=== PATIENT | female | born 1970 | race Asian ===

== ENCOUNTER 2017-02-10 12:58 | Emergency (ER) | payer BC ==
[2017-02-10 13:03] VITALS: RESP 16; TEMP 98.2
[2017-02-10] MEDS ORDERED: MECLIZINE HCL 25 MG TAB PO ONE (13:16)
[2017-02-10] MEDS ORDERED: LORazepam 2 MG/ML INJ IVP ONE (13:16)
[2017-02-10] MEDS ORDERED: NS 1,000 ML IV ONE (13:16)
--- NOTE | 2017-02-10 14:47 | EDPHY ---
H & P Stated Complaint: dizzy today - Personal History LMP (Females 10-55): 8-14 Days Ago Current Tetanus/Diphtheria Vaccine: Unsure Current Tetanus Diphtheria and Acellular Pertussis (TDAP): Unsure - Medical/Surgical History Hx Asthma: Yes Hx Chronic Respiratory Disease: No Hx Diabetes: No Hx Cardiac Disease: No Hx Renal Disease: No Hx Cirrhosis: No Hx Alcoholism: No Hx HIV/AIDS: No Hx Splenectomy or Spleen Trauma: No Other PMH: asthma, hypothyroid - Social History Smoking Status: Never smoked HPI/ROS: Chief complaint: Dizziness History of present illness: This is a 46-year-old female who presents to the emergency department for evaluation of dizziness. She describes the dizziness as the room spinning around her. Patient reports the onset of symptoms yesterday. Symptoms have been persistent. She denies specific precipitating factors. She denies alleviating factors. She does states symptoms are worse with movement. Patient denies other associated signs or symptoms including no fevers, cold symptoms trauma, headache, no paresthesias, no weakness or paralysis, no bowel or bladder dysfunction. She does state 3 or 4 years ago she had a similar episode. She did see Neurology but states that it not find anything during their evaluation. Review of systems: A 10 point review of systems was obtained and other than described above was negative (Chandu Mohr) - Physical Exam Exam: General Appearance: Alert, nontoxic. Eyes: Pupils equal and round no injection. ENT: Tympanic membranes, external auditory canals, external ears and surrounding soft tissue including over the mastoids are unremarkable. Nasopharynx is not injected. There is no rhinorrhea. Oropharynx is not injected. There is no edema. There is no exudate. There is no asymmetry. The uvula is midline. No elevation of the tongue. There is no hoarseness, no drooling, no trismus, no stridor. Respiratory: Chest is non tender, lungs are clear to auscultation. Cardiac: regular rate and rhythm Musculoskeletal: Neck is supple and non tender. Extremities have full range of motion and are non tender. Skin: No rashes or lesions. Neurological: Alert and oriented x4. Cranial nerves 2-12 grossly intact. Strength and sensation intact and symmetrical. Cerebellar testing intact using finger to nose. No meningismus. She is able to ambulate on her own. (Chandu Mohr) Constitutional: Initial Vital Signs Temperature (C) 36.8 C 02/10/17 13:00 Heart Rate 77 02/10/17 13:00 Respiratory Rate 16 02/10/17 13:00 Blood Pressure 116/77 02/10/17 13:00 O2 Sat (%) 92 02/10/17 13:00 O2 Delivery Mode Room Air Allergies/Adverse Reactions: No Known Allergies Allergy (Unverified 02/10/17 13:03) Home Medications: Medication Instructions Recorded AZITHROMYCIN [Z-PACK] 250 mg PO DAILY #0 packet 08/25/11 Fluticasone Nasal [Flonase Nasal 2 sprays NASAL DAILY #1 mdi 08/25/11 [place]] Fluticasone Propionate [Flovent 1 puffs IH DAILY 08/25/11 [facility]] Salmeterol Diskus [Serevent Diskus] 1 puffs IH DAILY 08/25/11 oxyCODONE/APAP 5/325 [Percocet 1 tab PO Q6 #10 tab 08/25/11 5/325] Meclizine HCl [Meclizine HCl 25 mg 25 mg PO QID #10 tab 02/10/17 (RX,OTC)] Medical Decision Making ED Course/Re-evaluation: Patient discussed with my secondary supervising physician Dr. Toby Garcia. Patient presents to the emergency department for dizziness. Patient is describing vertigo. She is nontoxic. Vital signs are stable. She has a nonfocal neurologic exam. She has had a previous history of this and has been worked up by neurology without specific findings according to her. This does sound like a peripheral vertigo. She is symptomatically treated with Ativan and meclizine and reports improvement in symptoms. She is discharged home on meclizine. She is referred to ENT for continued evaluation and care. Strict return precautions are given. Patient voiced understanding and agreement with plan. (Chandu Mohr) Differential Diagnosis: Included but not limited to peripheral causes of vertigo such as BPPV and labyrinthitis as well central causes of vertigo such as intracranial tumor or bleed, lightheadedness of multiple etiologies (Chandu Mohr) Other Provider: PHYSICIAN DOCUMENTATION: The patient was evaluated and managed by the Physician Clothing Examiner. My co- signature indicates that I have reviewed this chart and I agree with the findings and plan of care as documented. I am the secondary supervising physician. (Anthony Garcia) - Data Points Medications Given: Discontinued Medications Sodium Chloride (Ns) 1,000 mls @ 0 mls/hr IV ONCE ONE; Wide Open PRN Reason: Protocol Stop: 02/10/17 13:17 Last Admin: 02/10/17 13:39 Dose: 1,000 mls Lorazepam (Ativan Injection) 0.5 mg IVP EDNOW ONE Stop: 02/10/17 13:17 Last Admin: 02/10/17 13:38 Dose: 0.5 mg Meclizine HCl (Meclizine Hcl) 25 mg PO EDNOW ONE Stop: 02/10/17 13:17 Last Admin: 02/10/17 13:38 Dose: 25 mg Departure - Departure Disposition: Home, Routine, Self-Care Clinical Impression: Vertigo Condition: Good Instructions: Vertigo (ED) Additional Instructions: Follow-up with your primary care doctor for recheck If symptoms worsen or new symptoms develop return to the emergency room for recheck Referrals: Elizabet Rangel MD [Primary Care Provider] - As per Instructions Cisco Sharif MD [Medical Doctor] - As per Instructions Prescriptions: Meclizine HCl [Meclizine HCl 25 mg (RX,OTC)] 25 mg PO QID #10 tab
[2017-02-10 15:11] VITALS: BP 106/68; PULSE 71; O2SAT 96
== END 2017-02-10 15:18 | disposition home or self-care (01) ==
DX: R42 Dizziness and giddiness (principal); E86.9 Volume depletion, unspecified; J45.909 Unspecified asthma, uncomplicated
CPT/HCPCS: 96374; J2060

== ENCOUNTER → 2017-07-17 | Outpatient (CLI) | payer BC | LOC: FIMAGING 07:47 | PROVIDERS: ATTEND Family Medicine | DX: Z12.31 Encounter for screening mammogram for malignant neoplasm of breast (principal) | CPT/HCPCS: G0202 ==

== ENCOUNTER → 2018-10-05 | Outpatient (CLI) | payer BC | LOC: FIMAGING 07:57 | PROVIDERS: ATTEND Family Medicine | DX: Z12.31 Encounter for screening mammogram for malignant neoplasm of breast (principal) ==